=== PATIENT | female | born 1965 | race Caucasian/White ===

== ENCOUNTER 2019-06-12 06:42 | Emergency (ER) | payer MEDICAID ==
[~2019-06-12] VITALS: Ht 152.4 cm; Wt 62.1 kg
[~2019-06-12 06:42] MED LIST: LEVO100T PO; LOVA20TA2 PO; METO25TA3 PO; WELSR150 PO
[2019-06-12 07:00] VITALS: BP_SYST 129
--- NOTE | 2019-06-12 07:00 | NUR ---
BROUGHT BACK TO BED #7 AND TRIAGED, REPORT GIVEN TO OBINNA
--- NOTE | 2019-06-12 07:13 | NUR ---
Pt presents to ED c/o L shoulder pain x one week worsening today.Pt has no decreased ROM pain radiating down arm and to neck.Pt denies CP or SOB.
--- NOTE | 2019-06-12 07:32 | NUR ---
ER at bedside examining patient.
[2019-06-12] MEDS ORDERED: KETOROLAC TROMETHAMINE 60 MG/2 ML VIAL IM ONE (08:15)
--- NOTE | 2019-06-12 08:20 | NUR ---
Pt medicated tolerated well.
[2019-06-12 08:35] VITALS: BP_SYST 129
--- NOTE | 2019-06-12 08:35 | NUR ---
Patient given written and verbal discharge instructions and verbalizes understanding. ER MD discussed with patient the results and treatment provided. Patient in stable condition. ID arm band removed. Rx of naprosyn given. Patient educated on pain management and to follow up with PMD. Pain Scale 2. Opportunity for questions provided and answered. Medication side effect fact sheet provided.
== END 2019-06-12 08:35 | disposition home or self-care (01) ==
LOC: SED 06:42
DX: S43.402A Unspecified sprain of left shoulder joint, initial encounter (principal); S43.102A Unspecified dislocation of left acromioclavicular joint, initial encounter; Z88.5 Allergy status to narcotic agent; Z79.899 Other long term (current) drug therapy; X58.XXXA Exposure to other specified factors, initial encounter; Y93.89 Activity, other specified; Y92.89 Other specified places as the place of occurrence of the external cause; Y99.8 Other external cause status
CPT/HCPCS: 73030; 96372; 99283; J1885